=== PATIENT | female | born 1945 | race Caucasian/White ===

== ENCOUNTER → 2019-04-25 | Outpatient (CLI) | payer OTHER | LOC: HYPER 04-24 14:28 | DX: T81.89XA Other complications of procedures, not elsewhere classified, initial encounter (principal); E11.622 Type 2 diabetes mellitus with other skin ulcer; I70.242 Atherosclerosis of native arteries of left leg with ulceration of calf; L97.222 Non-pressure chronic ulcer of left calf with fat layer exposed; I70.243 Atherosclerosis of native arteries of left leg with ulceration of ankle; L97.321 Non-pressure chronic ulcer of left ankle limited to breakdown of skin; I87.332 Chronic venous hypertension (idiopathic) with ulcer and inflammation of left lower extremity; I87.2 Venous insufficiency (chronic) (peripheral); F33.9 Major depressive disorder, recurrent, unspecified; Z79.4 Long term (current) use of insulin; Y83.8 Other surgical procedures as the cause of abnormal reaction of the patient, or of later complication, without mention of misadventure at the time of the procedure; Y92.89 Other specified places as the place of occurrence of the external cause ==

== ENCOUNTER → 2019-05-01 | Outpatient (CLI) | payer OTHER | END | disposition home or self-care (01) | LOC: SJCVCIMAG 11:32 | DX: I73.9 Peripheral vascular disease, unspecified (principal); M79.605 Pain in left leg; L97.329 Non-pressure chronic ulcer of left ankle with unspecified severity; L97.929 Non-pressure chronic ulcer of unspecified part of left lower leg with unspecified severity ==

== ENCOUNTER → 2019-05-02 | Outpatient (CLI) | payer OTHER | LOC: HYPER 08:13 | DX: I70.242 Atherosclerosis of native arteries of left leg with ulceration of calf (principal); E11.622 Type 2 diabetes mellitus with other skin ulcer; L97.221 Non-pressure chronic ulcer of left calf limited to breakdown of skin; I70.243 Atherosclerosis of native arteries of left leg with ulceration of ankle; L97.321 Non-pressure chronic ulcer of left ankle limited to breakdown of skin; I70.248 Atherosclerosis of native arteries of left leg with ulceration of other part of lower leg; L97.822 Non-pressure chronic ulcer of other part of left lower leg with fat layer exposed; L03.116 Cellulitis of left lower limb; I87.332 Chronic venous hypertension (idiopathic) with ulcer and inflammation of left lower extremity; F33.9 Major depressive disorder, recurrent, unspecified; Z79.4 Long term (current) use of insulin; Z90.710 Acquired absence of both cervix and uterus ==

== ENCOUNTER → 2019-05-09 | Outpatient (CLI) | payer OTHER | LOC: HYPER 09:32 | DX: I70.242 Atherosclerosis of native arteries of left leg with ulceration of calf (principal); E11.622 Type 2 diabetes mellitus with other skin ulcer; I87.332 Chronic venous hypertension (idiopathic) with ulcer and inflammation of left lower extremity; L97.222 Non-pressure chronic ulcer of left calf with fat layer exposed; I70.243 Atherosclerosis of native arteries of left leg with ulceration of ankle; L97.321 Non-pressure chronic ulcer of left ankle limited to breakdown of skin; L57.0 Actinic keratosis; L30.9 Dermatitis, unspecified; L03.116 Cellulitis of left lower limb; E78.5 Hyperlipidemia, unspecified; F33.9 Major depressive disorder, recurrent, unspecified; Z79.4 Long term (current) use of insulin; Z90.710 Acquired absence of both cervix and uterus ==

== ENCOUNTER → 2019-05-16 | Outpatient (CLI) | payer OTHER | LOC: HYPER 09:52 | DX: I70.242 Atherosclerosis of native arteries of left leg with ulceration of calf (principal); E11.622 Type 2 diabetes mellitus with other skin ulcer; I87.332 Chronic venous hypertension (idiopathic) with ulcer and inflammation of left lower extremity; L97.222 Non-pressure chronic ulcer of left calf with fat layer exposed; I70.243 Atherosclerosis of native arteries of left leg with ulceration of ankle; L97.321 Non-pressure chronic ulcer of left ankle limited to breakdown of skin; L30.9 Dermatitis, unspecified; L03.116 Cellulitis of left lower limb; L57.0 Actinic keratosis; E78.5 Hyperlipidemia, unspecified; F33.9 Major depressive disorder, recurrent, unspecified; Z79.4 Long term (current) use of insulin; Z90.710 Acquired absence of both cervix and uterus; Z85.828 Personal history of other malignant neoplasm of skin; Z90.49 Acquired absence of other specified parts of digestive tract ==

== ENCOUNTER → 2019-05-23 | Outpatient (CLI) | payer OTHER | LOC: HYPER 09:57 | DX: E11.622 Type 2 diabetes mellitus with other skin ulcer (principal); I70.242 Atherosclerosis of native arteries of left leg with ulceration of calf; I87.332 Chronic venous hypertension (idiopathic) with ulcer and inflammation of left lower extremity; L97.822 Non-pressure chronic ulcer of other part of left lower leg with fat layer exposed; L97.221 Non-pressure chronic ulcer of left calf limited to breakdown of skin; L97.321 Non-pressure chronic ulcer of left ankle limited to breakdown of skin; L03.116 Cellulitis of left lower limb; L30.9 Dermatitis, unspecified; L57.0 Actinic keratosis; R60.0 Localized edema; E78.5 Hyperlipidemia, unspecified; F33.9 Major depressive disorder, recurrent, unspecified; Z79.4 Long term (current) use of insulin; Z90.49 Acquired absence of other specified parts of digestive tract; Z90.710 Acquired absence of both cervix and uterus ==

== ENCOUNTER → 2019-05-30 | Outpatient (CLI) | payer OTHER | LOC: HYPER 09:46 | DX: E11.622 Type 2 diabetes mellitus with other skin ulcer (principal); I70.242 Atherosclerosis of native arteries of left leg with ulceration of calf; L97.222 Non-pressure chronic ulcer of left calf with fat layer exposed; I70.248 Atherosclerosis of native arteries of left leg with ulceration of other part of lower leg; L97.822 Non-pressure chronic ulcer of other part of left lower leg with fat layer exposed; I70.243 Atherosclerosis of native arteries of left leg with ulceration of ankle; L97.321 Non-pressure chronic ulcer of left ankle limited to breakdown of skin; I87.2 Venous insufficiency (chronic) (peripheral); L30.9 Dermatitis, unspecified; L57.0 Actinic keratosis; E78.5 Hyperlipidemia, unspecified; I10 Essential (primary) hypertension; F33.9 Major depressive disorder, recurrent, unspecified; Z85.828 Personal history of other malignant neoplasm of skin; Z79.4 Long term (current) use of insulin; Z90.49 Acquired absence of other specified parts of digestive tract; Z90.710 Acquired absence of both cervix and uterus ==

== ENCOUNTER → 2019-06-06 | Outpatient (CLI) | payer OTHER | LOC: HYPER 09:41 | DX: I87.332 Chronic venous hypertension (idiopathic) with ulcer and inflammation of left lower extremity (principal); I70.248 Atherosclerosis of native arteries of left leg with ulceration of other part of lower leg; L97.822 Non-pressure chronic ulcer of other part of left lower leg with fat layer exposed; I70.242 Atherosclerosis of native arteries of left leg with ulceration of calf; L97.221 Non-pressure chronic ulcer of left calf limited to breakdown of skin; I70.243 Atherosclerosis of native arteries of left leg with ulceration of ankle; L97.321 Non-pressure chronic ulcer of left ankle limited to breakdown of skin; R60.0 Localized edema; L30.9 Dermatitis, unspecified; E78.5 Hyperlipidemia, unspecified; L57.0 Actinic keratosis; F33.9 Major depressive disorder, recurrent, unspecified; Z90.710 Acquired absence of both cervix and uterus; Z90.49 Acquired absence of other specified parts of digestive tract; Z79.4 Long term (current) use of insulin ==

== ENCOUNTER 2019-06-12 14:48 | Inpatient (IN) | payer OTHER ==
[~2019-06-12] VITALS: Ht 167.6 cm; Wt 94.7 kg
[2019-06-12 16:36] LABS: ABSOLUTE NEUTROPHILS 5.1 thou/uL (1.4-8.2); BASOPHILS 0.4 % (0.0-2.0); EOSINOPHILS 2.2 % (0.0-3.0); HEMATOCRIT 31.6 % (37.0-47.0); HEMOGLOBIN 10.3 gm/dL (12.0-15.0); LYMPHOCYTES 23.2 % (24.0-44.0); MCH 30.2 pg (26.0-34.0); MCHC 32.6 g/dL (28.0-37.0); MCV 92.6 fL (80.0-100.0); MONOCYTES 6.9 % (1.0-8.0); PLATELET COUNT 266 thou/uL (150-400); POLYS 67.3 % (36.0-66.0); RBC 3.42 mil/uL (4.20-5.00); RDW 14.7 % (10.5-14.5); WBC 7.6 thou/uL (4.0-11.0)
[2019-06-12 16:58] LABS: ALBUMIN 2.5 g/dL (3.4-5.0); CALCIUM 9.1 mg/dL (8.5-10.1); CREATININE 1.5 mg/dL (0.6-1.0); MAGNESIUM 2.1 mg/dL (1.8-2.4); TOTAL BILIRUBIN 0.3 mg/dL (<0.1-1.0); TOTAL PROTEIN 7.1 g/dL (6.4-8.2)
[2019-06-12 17:05] VITALS: BP 134/51
[2019-06-12 18:38] LABS: ALBUMIN 2.5 g/dL (3.4-5.0); TOTAL PROTEIN 7.1 g/dL (6.4-8.2)
[2019-06-12] MEDS ORDERED: ESTRACE0.5 MG PO (19:37)
[2019-06-12] MEDS ORDERED: ZOLOFT100 MG PO (19:38)
[2019-06-12] MEDS ORDERED: BUPROPION XL300 MG PO (19:39)
[2019-06-12] MEDS ORDERED: LASIX 40 MG TAB40 MG PO (19:40)
[2019-06-12] MEDS ORDERED: ULTRAM 50MG TAB50 MG PO (19:41)
[2019-06-12 20:23] VITALS: BP 126/45
[2019-06-13 00:12] VITALS: BP 107/39
[2019-06-13 02:11] LABS: GLYCOHEMOGLOBIN (HGB A1C) 7.2 % (4.8-5.6)
[2019-06-13 03:33] VITALS: BP 125/51
[2019-06-13 03:58] LABS: URINE BILIRUBIN NEGATIVE (Negative); URINE BLOOD NEGATIVE (Negative); URINE CLARITY CLEAR; URINE COLOR YELLOW; URINE GLUCOSE-RANDOM* NEGATIVE (Negative); URINE KETONES NEGATIVE (Negative); URINE LEUKOCYTES-REFLEX TRACE (Negative); URINE NITRITE-REFLEX NEGATIVE (Negative); URINE PROTEIN (DIPSTICK) NEGATIVE (Negative); URINE UROBILINOGEN 0.2 E.U./dl (0.2-1.0)
[2019-06-13 05:59] LABS: ABSOLUTE NEUTROPHILS 3.9 thou/uL (1.4-8.2); BASOPHILS 0.6 % (0.0-2.0); EOSINOPHILS 3.7 % (0.0-3.0); HEMATOCRIT 27.5 % (37.0-47.0); HEMOGLOBIN 9.2 gm/dL (12.0-15.0); MCH 31.1 pg (26.0-34.0); MCHC 33.4 g/dL (28.0-37.0); MCV 93.3 fL (80.0-100.0); MONOCYTES 7.6 % (1.0-8.0); PLATELET COUNT 233 thou/uL (150-400); POLYS 62.1 % (36.0-66.0); RBC 2.95 mil/uL (4.20-5.00); RDW 14.7 % (10.5-14.5); WBC 6.3 thou/uL (4.0-11.0)
[2019-06-13 06:26] LABS: CALCIUM 8.2 mg/dL (8.5-10.1); CREATININE 1.4 mg/dL (0.6-1.0)
[2019-06-13 07:45] VITALS: BP 113/47
--- NOTE | 2019-06-13 11:19 | 2DMMODE ---
[facility] [place] [address] 2 D/M-MODE ECHOCARDIOGRAM Name: DAISY ALFORD Room #: 463-P ADM IN M.R.#: [id number] Admission: 06/12/19 Attend Phys: Michael Solomon MD Discharge: Date of : 45 Report #: [id number] THIS REPORT FOR: cc: Estiven Natarajan Bradley J. DO Lundgren, Craig H. MD [facility] ~ APPROVED REPORT Study performed: 06/13/2019 09:45:11 EXAM: Comprehensive 2D, Doppler, and color-flow Echocardiogram Patient Location: Echo lab Room #: 463 Status: routine BSA: 2.05 HR: 81 bpm BP: 113/47 mmHg Rhythm: NSR Other Information Study Quality: Adequate Indications Diabetes Lower extremity swelling 2D Dimensions RVDd: 31.17 mm IVSd: 10.24 (7-11mm) LVOT Diam: 17.71 (18-24mm) LVDd: 46.93 mm PWd: 10.24 (7-11mm) Ascending Ao: 24.01 (22-36mm) LVDs: 30.39 (25-40mm) Aortic Root: 28.81 mm IVC: 22.00 mm Volumes Left Atrial Volume (Systole) Single Plane 4CH: 42.52 mL Single Plane 2CH: 37.05 mL LA ESV Index: 21.00 mL/m2 Aortic Valve AoV Peak Prince.: 1.54 m/s AO Peak Gr.: 12.89 mmHg LVOT Max P.59 mmHg LVOT Max V: 1.18 m/s KATHY Vmax: 1.88 cm2 [facility] [address] [place] [address] 2 D/M-MODE ECHOCARDIOGRAM Name: DAISY ALFORD Room #: 463-P [facility] IN [facility]#: [id number] Admission: 06/12/19 Attend Phys: Michael Solomon, Discharge: Date of : 45 Report #: [id number] Mitral Valve E/A Ratio: 0.9 MV Decel. Time: 244.76 ms MV E Max Prince.: 1.02 m/s MV A Prince.: 1.11 m/s MV PHT: 70.98 ms IVRT: 69.20 ms Pulmonary Valve PV Peak Prince.: 0.98 m/s PV Peak Gr.: 3.84 mmHg Pulmonary Vein P Vein S: 0.87 m/s P Vein A: 0.34 m/s P Vein D: 0.56 m/s P Vein A Dur.: 78.4 msec P Vein S/D Ratio: 1.55 Tricuspid Valve TR Peak Prince.: 2.51 m/s TR Peak Gr.: 25.29 mmHg PA Pressure: 35.00 mmHg Left Ventricle The left ventricle is normal size. There is normal LV segmental wall motion. There is normal left ventricular wall thickness. The left ventricular systolic function is normal. The left ventricular ejection fraction is within the normal range. LVEF is 55-60%. Mild diastolic dysfunction is present (impaired relaxation pattern). Right Ventricle The right ventricle is normal size. The right ventricular systolic function is normal. Atria The left atrium size is normal. The right atrium size is normal. Aortic Valve The aortic valve is normal in structure. No aortic regurgitation is present. There is no aortic valvular stenosis. Mitral Valve The mitral valve is normal in structure. Trace mitral regurgitation. No evidence of mitral valve stenosis. [facility] [address] [place] [address] 2 D/M-MODE ECHOCARDIOGRAM Name: DAISY ALFORD Room #: 463-P [facility] IN M.R.#: [id number] Admission: 06/12/19 Attend Phys: Michael Solomon, Discharge: Date of : 45 Report #: [id number] Tricuspid Valve The tricuspid valve is normal in structure. There is trace tricuspid regurgitation. Estimated PAP 35 mmHg. There is mild pulmonary hypertension. Pulmonic Valve The pulmonary valve is normal in structure. There is no pulmonic valvular regurgitation. Great Vessels The aortic root is normal in size. IVC is dilated and collapses >50% with inspiration. Pericardium There is no pericardial effusion. <Conclusion> The left ventricular systolic function is normal. There is normal LV segmental wall motion. LVEF is 55-60%. Mild diastolic dysfunction. The aortic valve is normal in structure. No aortic regurgitation, no stenosis The mitral valve is normal in structure. Trace mitral regurgitation. There is trace tricuspid regurgitation. Estimated pulmonary artery pressure of 35 mmHg. There is no pericardial effusion. <ELECTRONICALLY SIGNED> By: Keegan Lynch MD, FACC 06/13/19 1118 [id number] [id number] Keegan Lynch MD, FACC /INF
[2019-06-13] MEDS ORDERED: HUMALOG100 UNIT/1 SUBQ (14:58)
[2019-06-13] MEDS ORDERED: LANTUS SUBQ (14:59)
[2019-06-13 15:15] VITALS: BP 120/47
[2019-06-13 20:01] VITALS: BP 114/59
[2019-06-14 04:56] LABS: PROT/CREAT RATIO 0.3; URINE CREATININE-RANDOM* 126.7 mg/dL; URINE PROTEIN-RANDOM* 39.7 mg/dL (<11.9)
[2019-06-14 08:36] VITALS: BP 131/50
[2019-06-14 15:41] VITALS: BP 135/58
[2019-06-14 20:01] VITALS: BP 132/46
[2019-06-15 08:24] VITALS: BP 138/59
[2019-06-15 13:06] VITALS: BP 163/61
[2019-06-15] MEDS ORDERED: AUGMENTIN 875-1 EACH PO (13:27)
[2019-06-15 14:20] VITALS: BP 163/61
--- NOTE | 2019-06-19 08:12 | HC ---
[facility] [place] [address] CONSULTATION Name: DAISY ALFORD Room #: 463-P [facility] IN M.R.#: [id number] Admission: 06/12/19 Attend Phys: Michael Solomon MD Discharge: 06/15/19 Date of : 45 Report #: [id number] THIS REPORT FOR: cc: Estiven Natarajan,Facundo Sterling MD ~ CC: Estiven Soto DATE OF SERVICE: 06/13/2019 HISTORY OF PRESENT ILLNESS: The patient is a 73-year-old female patient with a history of venous insufficiency. 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 She, however, on her right leg developed significant cellulitis and blistering and high fever and is admitted to the hospital for further evaluation and treatment. The patient has significant pain at this time. PAST MEDICAL HISTORY: Positive for diabetes, previous hysterectomy, venous insufficiency. SOCIAL HISTORY: Negative for alcohol or tobacco use. She is , accompanied by her . MEDICATIONS: Include bupropion, estradiol, furosemide, insulin, sertraline, and tramadol. ALLERGIES: ADHESIVE TAPE AND METFORMIN. REVIEW OF SYSTEMS: CONSTITUTIONAL: The patient does complain of fever and chills. Denies weight loss. NEUROLOGICAL: The patient denies focal weakness, numbness or tingling. EYES: The patient denies visual changes, redness, or drainage. ENT: The patient denies earache, nasal drainage or sore throat. CARDIOVASCULAR: The patient denies chest pain, palpitations or diaphoresis. PULMONARY: The patient denies cough or shortness of breath. GASTROINTESTINAL: The patient denies nausea, vomiting, diarrhea or abdominal pain. ORTHOPEDIC: The patient complains of pain, swelling, blistering in the right leg, ulcers on the left leg. Other systems in a 14-point review of systems are negative. PHYSICAL EXAMINATION: [facility] [address] [place] [address] CONSULTATION Name: DAISY ALFORD Room #: 463-P [facility] IN M.R.#: [id number] Admission: 06/12/19 Attend Phys: Michael Solomon MD Discharge: 06/15/19 Date of : 45 Report #: [id number] VITAL SIGNS: Include temperature 36.3, pulse 81, respiratory rate 18, and blood pressure 113/47. GENERAL: A well-developed female patient who appears to be in minimal distress. HEENT: Head is normocephalic. Nose and throat clear. NECK: Supple. LUNGS: Clear to auscultation. HEART: Regular rhythm. ABDOMEN: Soft. Bowel sounds present. EXTREMITIES: Lower extremities demonstrate palpable distal pulses. She has cellulitis with bulla formation on the right pretibial region with significant erythema involving the foot and lower leg. The left side demonstrates circular deep ulcerations consistent with skin necrosis from venous ablation procedure. It is not overtly infected. NEUROLOGIC: The patient is alert, oriented and appropriate. LABORATORY DATA: Sodium 141, potassium 4.0, chloride 107, CO2 24, BUN 26, creatinine 1.4, glucose 188. White blood cell count 6.3 with a hemoglobin of 9.2. CLINICAL IMPRESSION: 1. Cellulitis with multiple bullae involving the right lower extremity. 2. Venous ulcerations and surgical wounds to the left lower extremity. RECOMMENDATIONS: At this point in time, we will recommend pulse lavage to the left side and some abrasive cleansing to the right intravenous antibiotic therapy, empirically pending cultures. We will need aggressive nutritional support to maximize wound healing and maintain glycemic control. I do appreciate being asked to see her in consultation. <ELECTRONICALLY SIGNED> By: Facundo Alfred MD 06/19/19 0812 [id number] Facundo Alfred MD /nt
== END 2019-06-15 15:02 | disposition home or self-care (01) | DRG 602 ==
LOC: HYPER 14:48 → 4W 15:21 → PRE 15:21 → 4W 15:30 → ENTRNSPT 06-15 14:34 → EDTRNSPTSTS 06-15 14:36 → 4W 06-15 15:02
PROVIDERS: Internal Medicine Geriatric Medicine; Nurse Practitioner; ADMIT Internal Medicine
DX: L03.115 Cellulitis of right lower limb (principal); E43 Unspecified severe protein-calorie malnutrition; L97.929 Non-pressure chronic ulcer of unspecified part of left lower leg with unspecified severity; F32.9 Major depressive disorder, single episode, unspecified; S81.802A Unspecified open wound, left lower leg, initial encounter; K59.00 Constipation, unspecified; E53.8 Deficiency of other specified B group vitamins; G47.00 Insomnia, unspecified; I87.2 Venous insufficiency (chronic) (peripheral); N18.9 Chronic kidney disease, unspecified; E11.22 Type 2 diabetes mellitus with diabetic chronic kidney disease; Z88.8 Allergy status to other drugs, medicaments and biological substances; Z87.442 Personal history of urinary calculi; Z90.710 Acquired absence of both cervix and uterus; Z79.4 Long term (current) use of insulin; X58.XXXA Exposure to other specified factors, initial encounter; Y93.89 Activity, other specified; Y92.89 Other specified places as the place of occurrence of the external cause; Y99.8 Other external cause status
CPT/HCPCS: 10047

== ENCOUNTER → 2019-06-22 | Outpatient (CLI) | payer OTHER ==
[~2019-06-22] MED LIST: AUGMENTIN 875-1 EACH PO; BUPROPION XL300 MG PO; ESTRACE0.5 MG PO; HUMALOG100 UNIT/1 SUBQ; LANTUS SUBQ; LASIX 40 MG TAB40 MG PO; ULTRAM 50MG TAB50 MG PO; ZOLOFT100 MG PO
== END ==
LOC: HYPER 09:31
DX: E11.622 Type 2 diabetes mellitus with other skin ulcer (principal); I87.332 Chronic venous hypertension (idiopathic) with ulcer and inflammation of left lower extremity; L97.822 Non-pressure chronic ulcer of other part of left lower leg with fat layer exposed; I70.242 Atherosclerosis of native arteries of left leg with ulceration of calf; L97.222 Non-pressure chronic ulcer of left calf with fat layer exposed; L97.321 Non-pressure chronic ulcer of left ankle limited to breakdown of skin; L84 Corns and callosities; L03.115 Cellulitis of right lower limb; L30.9 Dermatitis, unspecified; L57.0 Actinic keratosis; R60.0 Localized edema; F33.9 Major depressive disorder, recurrent, unspecified; Z79.4 Long term (current) use of insulin; Z90.49 Acquired absence of other specified parts of digestive tract; Z90.710 Acquired absence of both cervix and uterus; E78.5 Hyperlipidemia, unspecified

== ENCOUNTER → 2019-06-29 | Outpatient (CLI) | payer OTHER | LOC: HYPER 14:19 | DX: I87.332 Chronic venous hypertension (idiopathic) with ulcer and inflammation of left lower extremity (principal); E11.622 Type 2 diabetes mellitus with other skin ulcer; I70.242 Atherosclerosis of native arteries of left leg with ulceration of calf; L97.222 Non-pressure chronic ulcer of left calf with fat layer exposed; I70.248 Atherosclerosis of native arteries of left leg with ulceration of other part of lower leg; L97.822 Non-pressure chronic ulcer of other part of left lower leg with fat layer exposed; I70.243 Atherosclerosis of native arteries of left leg with ulceration of ankle; L97.321 Non-pressure chronic ulcer of left ankle limited to breakdown of skin; L03.115 Cellulitis of right lower limb; L30.9 Dermatitis, unspecified; E11.628 Type 2 diabetes mellitus with other skin complications; L57.0 Actinic keratosis; F33.9 Major depressive disorder, recurrent, unspecified; Z79.4 Long term (current) use of insulin; Z90.49 Acquired absence of other specified parts of digestive tract; Z90.710 Acquired absence of both cervix and uterus ==

== ENCOUNTER → 2019-07-05 | Outpatient (CLI) | payer OTHER ==
[~2019-07-05] VITALS: Ht 198.1 cm; Wt 95.3 kg
[~2019-07-05] MED LIST changes: +NEURONTIN300 MG PO; +NORCO 10-325 T1 EACH PO
[2019-07-05 10:33] LABS: HEMATOCRIT 36.9 % (37.0-47.0); HEMOGLOBIN 12.2 gm/dL (12.0-15.0); MCH 30.3 pg (26.0-34.0); MCHC 33.1 g/dL (28.0-37.0); MCV 91.8 fL (80.0-100.0); RBC 4.02 mil/uL (4.20-5.00); RDW 15.1 % (10.5-14.5); WBC 5.6 thou/uL (4.0-11.0)
[2019-07-05 10:40] VITALS: BP 161/86
[2019-07-05 10:47] LABS: CALCIUM 9.6 mg/dL (8.5-10.1); CREATININE 1.5 mg/dL (0.6-1.0); POTASSIUM 4.8 mmol/L (3.5-5.1)
--- NOTE | 2019-07-05 13:34 | NUR ---
ATTEMPTED TO FLUSH L LATERAL AC IV FLUIDS NOT RUNNING. PT COMPLAINS OF PAIN TO IV SITE WHEN FLUSHED. NO SWELLING OR REDNESS NOTED. IV D/C'D. 22G RESTARTED TO LAC AND FLUIDS RESTARTED.
[2019-07-05 15:42] VITALS: BP 155/74
== END ==
LOC: CATH 09:36
PROVIDERS: Nuclear Medicine Nuclear Cardiology
DX: I87.1 Compression of vein (principal); I87.303 Chronic venous hypertension (idiopathic) without complications of bilateral lower extremity

== ENCOUNTER → 2019-07-06 | Outpatient (CLI) | payer OTHER | LOC: SJCVCIMAG 07:36 | DX: M71.21 Synovial cyst of popliteal space [Baker], right knee (principal); M79.605 Pain in left leg; R22.42 Localized swelling, mass and lump, left lower limb ==

== ENCOUNTER → 2019-07-06 | Outpatient (CLI) | payer OTHER | LOC: HYPER 09:00 | DX: E11.622 Type 2 diabetes mellitus with other skin ulcer (principal); I87.332 Chronic venous hypertension (idiopathic) with ulcer and inflammation of left lower extremity; L97.822 Non-pressure chronic ulcer of other part of left lower leg with fat layer exposed; I70.242 Atherosclerosis of native arteries of left leg with ulceration of calf; L97.222 Non-pressure chronic ulcer of left calf with fat layer exposed; L03.115 Cellulitis of right lower limb; L84 Corns and callosities; L30.9 Dermatitis, unspecified; L57.0 Actinic keratosis; I89.0 Lymphedema, not elsewhere classified; R60.0 Localized edema; E78.5 Hyperlipidemia, unspecified; F33.9 Major depressive disorder, recurrent, unspecified; Z79.4 Long term (current) use of insulin; Z90.710 Acquired absence of both cervix and uterus; Z90.49 Acquired absence of other specified parts of digestive tract ==

== ENCOUNTER → 2019-07-13 | Outpatient (CLI) | payer OTHER | LOC: HYPER 09:00 | DX: E11.622 Type 2 diabetes mellitus with other skin ulcer (principal); I87.332 Chronic venous hypertension (idiopathic) with ulcer and inflammation of left lower extremity; L97.822 Non-pressure chronic ulcer of other part of left lower leg with fat layer exposed; I70.242 Atherosclerosis of native arteries of left leg with ulceration of calf; L97.222 Non-pressure chronic ulcer of left calf with fat layer exposed; L97.812 Non-pressure chronic ulcer of other part of right lower leg with fat layer exposed; L03.115 Cellulitis of right lower limb; L84 Corns and callosities; L30.9 Dermatitis, unspecified; L57.0 Actinic keratosis; E78.5 Hyperlipidemia, unspecified; R60.0 Localized edema; I89.0 Lymphedema, not elsewhere classified; F33.9 Major depressive disorder, recurrent, unspecified; Z79.4 Long term (current) use of insulin; Z90.49 Acquired absence of other specified parts of digestive tract; Z90.710 Acquired absence of both cervix and uterus ==

== ENCOUNTER → 2019-07-20 | Outpatient (CLI) | payer OTHER | LOC: HYPER 14:07 | DX: E11.622 Type 2 diabetes mellitus with other skin ulcer (principal); I87.332 Chronic venous hypertension (idiopathic) with ulcer and inflammation of left lower extremity; L97.822 Non-pressure chronic ulcer of other part of left lower leg with fat layer exposed; I70.242 Atherosclerosis of native arteries of left leg with ulceration of calf; L97.222 Non-pressure chronic ulcer of left calf with fat layer exposed; L84 Corns and callosities; L03.115 Cellulitis of right lower limb; L30.9 Dermatitis, unspecified; L57.0 Actinic keratosis; R60.0 Localized edema; E78.5 Hyperlipidemia, unspecified; I89.0 Lymphedema, not elsewhere classified; F33.9 Major depressive disorder, recurrent, unspecified; Z79.4 Long term (current) use of insulin; Z90.49 Acquired absence of other specified parts of digestive tract; Z90.710 Acquired absence of both cervix and uterus ==

== ENCOUNTER → 2019-07-27 | Outpatient (CLI) | payer OTHER | LOC: HYPER 08:09 | DX: E11.622 Type 2 diabetes mellitus with other skin ulcer (principal); I87.332 Chronic venous hypertension (idiopathic) with ulcer and inflammation of left lower extremity; L97.822 Non-pressure chronic ulcer of other part of left lower leg with fat layer exposed; I70.242 Atherosclerosis of native arteries of left leg with ulceration of calf; L97.222 Non-pressure chronic ulcer of left calf with fat layer exposed; L84 Corns and callosities; L30.9 Dermatitis, unspecified; L57.0 Actinic keratosis; I89.0 Lymphedema, not elsewhere classified; E78.5 Hyperlipidemia, unspecified; R60.0 Localized edema; F33.9 Major depressive disorder, recurrent, unspecified; Z79.4 Long term (current) use of insulin; Z90.49 Acquired absence of other specified parts of digestive tract; Z90.710 Acquired absence of both cervix and uterus ==

== ENCOUNTER → 2019-08-03 | Outpatient (CLI) | payer OTHER | LOC: HYPER 09:25 | DX: E11.622 Type 2 diabetes mellitus with other skin ulcer (principal); I87.332 Chronic venous hypertension (idiopathic) with ulcer and inflammation of left lower extremity; L97.822 Non-pressure chronic ulcer of other part of left lower leg with fat layer exposed; I70.242 Atherosclerosis of native arteries of left leg with ulceration of calf; L97.222 Non-pressure chronic ulcer of left calf with fat layer exposed; L84 Corns and callosities; L57.0 Actinic keratosis; L30.9 Dermatitis, unspecified; I89.0 Lymphedema, not elsewhere classified; R60.0 Localized edema; E78.5 Hyperlipidemia, unspecified; F33.9 Major depressive disorder, recurrent, unspecified; Z90.49 Acquired absence of other specified parts of digestive tract; Z90.710 Acquired absence of both cervix and uterus; Z79.4 Long term (current) use of insulin ==

== ENCOUNTER → 2019-08-10 | Outpatient (CLI) | payer OTHER | LOC: HYPER 09:13 | DX: E11.622 Type 2 diabetes mellitus with other skin ulcer (principal); I87.332 Chronic venous hypertension (idiopathic) with ulcer and inflammation of left lower extremity; L97.822 Non-pressure chronic ulcer of other part of left lower leg with fat layer exposed; I70.242 Atherosclerosis of native arteries of left leg with ulceration of calf; L97.221 Non-pressure chronic ulcer of left calf limited to breakdown of skin; I89.0 Lymphedema, not elsewhere classified; R60.0 Localized edema; L30.9 Dermatitis, unspecified; L57.0 Actinic keratosis; E78.5 Hyperlipidemia, unspecified; F33.9 Major depressive disorder, recurrent, unspecified; Z90.49 Acquired absence of other specified parts of digestive tract; Z79.4 Long term (current) use of insulin; Z90.710 Acquired absence of both cervix and uterus ==

== ENCOUNTER → 2019-08-17 | Outpatient (CLI) | payer OTHER | LOC: HYPER 08:33 | DX: E11.622 Type 2 diabetes mellitus with other skin ulcer (principal); I87.332 Chronic venous hypertension (idiopathic) with ulcer and inflammation of left lower extremity; L97.822 Non-pressure chronic ulcer of other part of left lower leg with fat layer exposed; I70.242 Atherosclerosis of native arteries of left leg with ulceration of calf; L97.222 Non-pressure chronic ulcer of left calf with fat layer exposed; L57.0 Actinic keratosis; L84 Corns and callosities; L30.9 Dermatitis, unspecified; E78.5 Hyperlipidemia, unspecified; I89.0 Lymphedema, not elsewhere classified; R60.0 Localized edema; F33.9 Major depressive disorder, recurrent, unspecified; Z79.4 Long term (current) use of insulin; Z90.49 Acquired absence of other specified parts of digestive tract; Z90.710 Acquired absence of both cervix and uterus ==

== ENCOUNTER → 2019-08-31 | Outpatient (CLI) | payer OTHER | LOC: HYPER 08:52 | DX: E11.622 Type 2 diabetes mellitus with other skin ulcer (principal); I87.332 Chronic venous hypertension (idiopathic) with ulcer and inflammation of left lower extremity; L97.822 Non-pressure chronic ulcer of other part of left lower leg with fat layer exposed; I70.242 Atherosclerosis of native arteries of left leg with ulceration of calf; L97.221 Non-pressure chronic ulcer of left calf limited to breakdown of skin; L84 Corns and callosities; L30.9 Dermatitis, unspecified; L57.0 Actinic keratosis; I87.2 Venous insufficiency (chronic) (peripheral); I89.0 Lymphedema, not elsewhere classified; R60.0 Localized edema; E78.5 Hyperlipidemia, unspecified; F33.9 Major depressive disorder, recurrent, unspecified; Z90.710 Acquired absence of both cervix and uterus; Z90.49 Acquired absence of other specified parts of digestive tract; Z79.4 Long term (current) use of insulin ==

== ENCOUNTER → 2019-09-07 | Outpatient (CLI) | payer OTHER | LOC: HYPER 08:57 | DX: E11.622 Type 2 diabetes mellitus with other skin ulcer (principal); I87.332 Chronic venous hypertension (idiopathic) with ulcer and inflammation of left lower extremity; L97.822 Non-pressure chronic ulcer of other part of left lower leg with fat layer exposed; I70.242 Atherosclerosis of native arteries of left leg with ulceration of calf; L97.221 Non-pressure chronic ulcer of left calf limited to breakdown of skin; L84 Corns and callosities; L30.9 Dermatitis, unspecified; L57.0 Actinic keratosis; E78.5 Hyperlipidemia, unspecified; I89.0 Lymphedema, not elsewhere classified; R60.0 Localized edema; F33.9 Major depressive disorder, recurrent, unspecified; Z90.49 Acquired absence of other specified parts of digestive tract; Z79.4 Long term (current) use of insulin; Z90.710 Acquired absence of both cervix and uterus ==

== ENCOUNTER → 2019-09-14 | Outpatient (CLI) | payer OTHER ==
[~2019-09-14] MED LIST changes: +CEFDINIR300 MG PO; +LASIX 40 MG TAB40 M2 PO; +LEVAQUIN 500 M500 M3 PO; +METRONIDAZOLE500 M4 PO
== END ==
LOC: HYPER 07:37
PROVIDERS: ATTEND Emergency Medicine
DX: E11.622 Type 2 diabetes mellitus with other skin ulcer (principal); I87.332 Chronic venous hypertension (idiopathic) with ulcer and inflammation of left lower extremity; L97.822 Non-pressure chronic ulcer of other part of left lower leg with fat layer exposed; I70.242 Atherosclerosis of native arteries of left leg with ulceration of calf; L97.222 Non-pressure chronic ulcer of left calf with fat layer exposed; L84 Corns and callosities; I89.0 Lymphedema, not elsewhere classified; R60.0 Localized edema; L30.9 Dermatitis, unspecified; L57.0 Actinic keratosis; E78.5 Hyperlipidemia, unspecified; F33.9 Major depressive disorder, recurrent, unspecified; Z79.4 Long term (current) use of insulin; Z90.49 Acquired absence of other specified parts of digestive tract; Z90.710 Acquired absence of both cervix and uterus

== ENCOUNTER 2019-09-16 10:24 | Inpatient (IN) | payer OTHER ==
[~2019-09-16] VITALS: Ht 167.6 cm; Wt 97.5 kg
[~2019-09-16 10:24] MED LIST changes: -CEFDINIR300 MG PO; -LASIX 40 MG TAB40 M2 PO; -LEVAQUIN 500 M500 M3 PO; -METRONIDAZOLE500 M4 PO
[2019-09-16 10:25] VITALS: BP 114/41
--- NOTE | 2019-09-16 10:59 | NUR ---
PT HAS DRESSING ON LLE PT STATES HER ULCERATIONS ON THAT EXTREMITY ARE BEING TREATED BY DR RODRIGUEZ AND ARE CURRENTLY PACKED WITH SILVER ALGINATE (NOT TO BE REMOVED FOR ANOTHER WEEK) PT STATES SHE DOES DAILY DRESSING CHANGES WITH NON-STICK GAUZE WRAPPED IN KERLIX AND SECURED WITH TAPE. DID NOT VISUALIZE WOUNDS, LEFT DRESSING IN PLACE.
[2019-09-16 11:03] LABS: ABSOLUTE NEUTROPHILS 15.9 thou/uL (1.4-8.2); BASOPHILS 0.1 % (0.0-2.0); HEMATOCRIT 35.1 % (37.0-47.0); HEMOGLOBIN 11.8 gm/dL (12.0-15.0); LYMPHOCYTES 2.8 % (24.0-44.0); MCH 30.5 pg (26.0-34.0); MCHC 33.8 g/dL (28.0-37.0); MCV 90.4 fL (80.0-100.0); MONOCYTES 2.2 % (1.0-8.0); PLATELET COUNT 285 thou/uL (150-400); POLYS 94.9 % (36.0-66.0); RBC 3.88 mil/uL (4.20-5.00); WBC 16.7 thou/uL (4.0-11.0)
[2019-09-16 11:11] LABS: CALCIUM 8.3 mg/dL (8.5-10.1); CREATININE 2.5 mg/dL (0.6-1.0); POTASSIUM 5.1 mmol/L (3.5-5.1)
[2019-09-16 11:14] LABS: ALBUMIN 2.7 g/dL (3.4-5.0); TOTAL BILIRUBIN 0.5 mg/dL (0.2-1.0); TOTAL PROTEIN 6.6 g/dL (6.4-8.2)
[2019-09-16 12:33] VITALS: BP 133/42
[2019-09-16 13:20] LABS: URINE BILIRUBIN NEGATIVE (Negative); URINE BLOOD TRACE (Negative); URINE CLARITY CLEAR; URINE COLOR ORANGE; URINE GLUCOSE-RANDOM* 1+ (Negative); URINE KETONES TRACE (Negative); URINE PROTEIN (DIPSTICK) 2+ (Negative); URINE SPECIFIC GRAVITY 1.015 (1.005-1.035)
[2019-09-16 13:25] LABS: URINE LEUKOCYTES-REFLEX 3+ (Negative); URINE NITRITE-REFLEX POSITIVE (Negative)
[2019-09-16 13:38] LABS: SQUAMOUS 0-3 Few /LPF (0-3)
[2019-09-16 13:39] LABS: CRYSTALS None Seen /LPF (None Seen); URINE RBC 0-2 Rare /HPF (0-2); URINE WBC-REFLEX >25 Many /HPF (0-5)
[2019-09-16 13:40] LABS: CASTS None Seen /LPF (None Seen)
[2019-09-16 14:44] VITALS: BP 132/42; BP 134/32
[2019-09-16 16:20] VITALS: BP 136/85
--- NOTE | 2019-09-16 19:39 | NUR ---
Admitted from ER due to cellulitis at 1500; transferred to bed safely. A+Ox4. On room air. Vital signs stable. On telemetry, strips attached to chart- SR- no complaints of chest pain, crushing sensation and heaviness. On carb controlled diet- tolerating well; no nausea, no vomiting and no abdominal pain noted. On blood sugar monitoring- taken and recorded accordingly; with sliding scale insulin ordered- given as preascribed. With SL at R AC- resumed ordered NS at 150cc/hr. Continent of bowel and bladder- assisted going to the toilet with gait belt, walker and standby assist. Admission education, history and assessment done; admission forms signed. With bilateral LE cellulitis- photo taken; dressing changed. Consult to Dr Soto called in by US; L leg with packing in place- pt refused to have it removed- body painter nurse informed. Pt's updated re: pt's status. Complained of pain, due PRN pain meds given as prescribed with partial pain relief. Assisted in ADLs. Falls bundle in place. To continue monitoring patient. With Lactic acid of 3.0 at 1732 from 2.7 at 1436- Dr Sullivan informed, a/w orders. Response received at 1920 for NS 500ml bolus- body painter nurse informed to put in orders- shown physician's response.
[2019-09-16 19:52] VITALS: BP 126/41
[2019-09-17 00:12] VITALS: BP 100/77
--- NOTE | 2019-09-17 03:55 | NUR ---
ASSUMED CARE OF PT AT 1900HRS. PT AOX4 AND LETS NEEDS BE KNOWN. FALL PRECAUTION IN PLACE. PT REPORTED SOME PAIN AND WAS TREATED WITH PRN PAIN MEDS. PT RUNNING ST ON TELE. PT'S LACTATE IN NOW WNL. PT PRODUCED DARK, ORANGE URINE THIS SHIFT. PT HAD A TEMP OF 100.5 AND IT RESOLVED BY NIDNIGHT. PT WAS ABLE TO GET COMFORTABLE AND SLEEP PART OF THE SHIFT. NO S/S OF ACUTE DISTRESS. WILL CONTINUE TO MONITOR.
[2019-09-17 04:46] VITALS: BP 101/80
[2019-09-17 06:16] LABS: HEMATOCRIT 31.9 % (37.0-47.0); HEMOGLOBIN 10.7 gm/dL (12.0-15.0); MCH 30.4 pg (26.0-34.0); MCHC 33.4 g/dL (28.0-37.0); MCV 91.1 fL (80.0-100.0); RBC 3.51 mil/uL (4.20-5.00); RDW 14.3 % (10.5-14.5); WBC 14.7 thou/uL (4.0-11.0)
--- NOTE | 2019-09-17 08:07 | HC ---
[facility] [place] [address] CONSULTATION Name: TARA ALFORD Room #: 456-P ADM IN M.R.#: [id number] Admission: 09/16/19 Attend Phys: Corazon Sullivan MD Discharge: Date of : 45 Report #: [id number] THIS REPORT FOR: cc: Estiven Natarajan,Grant Mendez MD ~ CC: Corazon Natarajan DATE OF SERVICE: 09/17/2019 REASON FOR CONSULTATION: Cellulitis of bilateral legs with venous stasis ulceration of left leg and worsening cellulitis. HISTORY OF PRESENT ILLNESS: The patient is a 74-year-old woman, patient of Dr. Gary Soto, well known to Dr. Soto and seen by him in [facility] on , 3 days ago. At that time, Dr. Soto applied a biologic dressing to venous stasis ulcerations of the left medial lower leg. I received a phone call from the patient's yesterday presentation designer stating that his , Tara's legs were in a worse of her condition with more swelling, more redness, more pain and she was having constitutional symptoms of malaise and low-grade fever. I directed the patient to present to the Emergency Room at [facility] and she has been admitted to the hospital under Dr. Sullivan and is currently on intravenous vancomycin. The patient states that she just was not feeling well at home. She was weak. Her legs were more red and tender. She had a low-grade temperature. At home, she does use compression wraps on her legs. Wound care is consulted due to her worsening cellulitis of the legs with ulceration of the left leg. PAST MEDICAL HISTORY: Diabetes mellitus type 2 with peripheral neuropathy, hemoglobin A1c recent 6.9; chronic venous stasis of bilateral lower extremities; venous stasis ulceration of the legs; obesity; chronic kidney disease, stage2, creatinine 1.5. PAST SURGICAL HISTORY: Laparoscopic cholecystectomy. ALLERGIES: METFORMIN. REVIEW OF SYSTEMS: The patient has weakness and malaise, low-grade fever. LABORATORY DATA: White blood count 16.7, hemoglobin 11.8, hematocrit 35.1, creatinine 2.5. PHYSICAL EXAMINATION: GENERAL: Shows a well-appearing obese, elderly woman with some malaise. HEENT: Mucous membranes are moist. [address] [address] CONSULTATION Name: TARA ALFORD Room #: 456-P [facility] IN ..#: [id number] Admission: 09/16/19 Attend Phys: Corazon Sullivan MD Discharge: Date of : 45 Report #: [id number] NECK: Supple. She is alert, conversant good historian. LUNGS: Respirations unlabored. ABDOMEN: Soft. EXTREMITIES: Exam shows intense redness and cellulitis of the right leg from the mid leg to the foot. There are no ulcerations of the right leg. Examination of the left leg also shows intense red cellulitis with two small chronic-appearing venous stasis ulcerations of the medial left lower leg. There appears to be a biologic product applied to the wounds by Dr. Soto on . The patient says this is supposed to stay on. There is some exudate from the wound. IMPRESSION: 1. Obesity. 2. Diabetes mellitus type 2 with peripheral neuropathy. 3. History of chronic venous stasis of lower extremities. 4. Worsening cellulitis of right and left leg. 5. Venous stasis ulceration of left leg. PLAN: Wound cultures ordered for open exudative wounds of the left leg. The patient will receive intravenous vancomycin pending culture results. Xeroform to both legs including the open areas, Kerlix and Talon wrap. Wound care team will follow as cellulitis is treated with vancomycin. <ELECTRONICALLY SIGNED> By: Grant Jones MD 09/17/19 0807 [id number] Grant Jones MD /nt
[2019-09-17 08:46] LABS: CALCIUM 8.3 mg/dL (8.5-10.1); CREATININE 2.1 mg/dL (0.6-1.0)
[2019-09-17 08:56] LABS: POTASSIUM 3.8 mmol/L (3.5-5.1)
--- NOTE | 2019-09-17 18:33 | NUR ---
AAOX4. CALM, COOPERATIVE. ANTIBIOTICS STARTED. RIGHT LEG DRESSED ORDERED. FALL PRECAUTIONS IN PLACE. NSR PER TELE. MEDICATED FOR PAIN ALLOWED.
[2019-09-17 20:24] VITALS: BP 122/53
[2019-09-17 21:27] VITALS: BP 122/53
[2019-09-18 07:30] VITALS: BP 124/62
--- NOTE | 2019-09-18 07:36 | NUR ---
PT AOX4. PT REPORTS PAIN IN BLE. PT RECEIVING PRN IV FENTANYL Q4HR WITH PRN PO TRAMADOL DAILY AVAILABLE. PT REPORTS TRAMADOL INEFFECTIVE. HOT WORT SETTLER PROVIDER NOTIFIED, EMAR UPDATED WITH PRN PO NORCO Q4HR AVAILABLE. PT AMBULATES IN ROOM AND TO BATHROOM WITH STANDBY ASSIST. PT RLE REMAINS DRESSED AND WRAPPED IN DAVID WRAP. LLE NOTED WITH TRANSPARENT ADHESIVE DRESSING. PT REPORTS SPEAKING WITH DR. RODRIGUEZ IN REGARDS TO WOUND CARE TO LLE. HOT WORT SETTLER PROVIDER NOTIFIED, WOUND CARE ORDERS RECEIVED FOR LLE TO APPLY XEROFORM, ABD, AND KERLIX. PT TOLERATING PO INTAKE OF FLUIDS AND CARB CONTROLLED DIET. ENCOURAGED PT TO NOTIFY STAFF FOR ALL NEEDS. CALL LIGHT WITHIN REACH, BED IN LOWEST POSITION. WILL CONTINUE TO MONITOR.
[2019-09-18 15:47] LABS: CALCIUM 8.4 mg/dL (8.5-10.1); CREATININE 1.9 mg/dL (0.6-1.0); POTASSIUM 3.9 mmol/L (3.5-5.1)
[2019-09-18 16:40] VITALS: BP 155/63
[2019-09-18] MEDS ORDERED: NEURONTIN300 MG PO (17:22)
--- NOTE | 2019-09-18 18:56 | NUR ---
ASSUMED CARE AT CHANGE OF SHIFT. ALERTX4, ANXIOUS REGARDING WOUND HEALING AND EDEMA IN LE. WOUND CARE TREE TOPPER AND DR JARVIS ROUNDING AND SPENT TIME REVIEWING LE CARE NEEDS AND HEALING CARE PLAN. DENIES SOB, VS WNL. UP AB REMEDIOS IN ROOM. PT TO BE EVALUATED BY LIMPHADEMA SPECIALIST FROM OCCUPATIONAL THERAPY. WOUND CARE COMPLETED BY WOUND TREE TOPPER SEE ORDERS FOR DAILY DRESSINGS. PERSONAL ITEMS IN REACH CALLS FOR ASSISTANCE.
[2019-09-18 19:45] VITALS: BP 129/47
[2019-09-19 04:15] VITALS: BP 110/49
--- NOTE | 2019-09-19 04:22 | NUR ---
Assumed pt care at 1900. Pt is A/OX4, VSS. Up ad elena w/o problems. Denies pain on assessment. Compa lower extremities wrapped in acewraps,edema noted on BLE,feet elevated while in bed. SR on the monitor. Resting quietly at this time w/o any distress noted. Encouraged to call for help as needed.
[2019-09-19 07:15] VITALS: BP 138/52
--- NOTE | 2019-09-19 10:36 | NUR ---
Received awake on bed. Due medications given as prescribed, able to swallow meds w/o difficulty. On room air. Vital signs stable. On carb controlled diet- tolerating well; no nausea, no vomiting and no abdominal pain noted. On blood sugar monitoring- taken and recorded accordingly; with sliding scale insulin ordered- given as prescribed. On telemetry- strips attached to chart; no complaints of chest pain, crushing sensation and heaviness. Continent of bowel and bladder- able to go to the toilet. With bilateral LE cellulitis- dressing C/D/I. With SL at L FA- intact; on IV abx. A/W OT for lymphadema wraps. Assisted in ADLs. To continue monitoring patient.
[2019-09-19] MEDS ORDERED: LASIX 40 MG TAB40 M2 PO (14:23)
[2019-09-19] MEDS ORDERED: METRONIDAZOLE500 M4 PO (14:23)
[2019-09-19] MEDS ORDERED: CEFDINIR300 MG PO (14:23)
[2019-09-19] MEDS ORDERED: HUMALOG100 UNIT/1 SUBQ (14:23)
--- NOTE | 2019-09-19 14:41 | NUR ---
PT ADMITTED RELATED TO CELLULITIS, SEPSIS. CM REVIEWED CHART AND SPOKE WITH CARE TEAM. CM CALLED AND SPOKE WITH PT AT BEDSIDE THIS DAY. PT APPEARED TO BE A&O X4. PT INDICATED SHE LIVES IN A HOUSE WITH HER SPOUSE WITH NO STEPS TO ENTER AND NO STEPS INSIDE. PT INDICATED THAT SHE HAS A FWW FOR HOME USE BUT HAD BEEN INDEPDENENT WITH GAIT AND ADLS BAKER. PT INDICATED NO HH OR OP THERAPY. PT HAD BEEN SEEN BY DR. MOSS IN THE PREVIOUSLY. PT INDICATED SHE PLANS TO RETURN HOME ONCE MEDICALLY STABLE. CM TO FOLLOW INDICATED WITH DC PLANNING.
[2019-09-19 15:21] VITALS: BP 119/40
[2019-09-19 20:32] VITALS: BP 149/65
--- NOTE | 2019-09-20 04:54 | NUR ---
ASSUMED PT CARE AROUND 1929. AXOX4. INDEPENDENT WITH ADLs. CALLS PROPERLY FOR HELP. AROUND 2199, VISITED PT AT BEDSIDE. BLE DRESSING WERE TAKEN DOWN AND OBSERVED BY . REDRESSING COMPLETED AND RECOMMENDED PT'S BLE HYPER-ELEVATED IN BED AT 9DEGREES. PT WAS ABLE TO TOLERATE THE POSITION THRUOUT THE SHIFT EXCEPT FOR BATHROOM BREAKS. ASSITED IN LOWERING BED DOWN SO PT CAN COMMODE EASILY. PT'S LVL OF CARE DOWNDGRADED TO MS PER TYRONE SAUCEDA ASSISTANT PROFESSOR OF ART FOR . NO S/S ACUTE DISTRESS NOTED OR REPORTED AT THIS TIME. WILL CONT TO MONITOR FOR ANY CHANGES IN CONDITION.
[2019-09-20 05:57] LABS: CALCIUM 8.6 mg/dL (8.5-10.1); CREATININE 1.4 mg/dL (0.6-1.0)
[2019-09-20 07:22] VITALS: BP 141/72
--- NOTE | 2019-09-20 12:18 | NUR ---
ORDERS RECEIVED FOR PT EVAL AND TREAT. Pt LIVES WITH IN HOME WITHOUT STAIRS. REPORTED THAT HAS BEEN HELPING HER SIT>STAND AT TIMES D/T DIFFICULTY WITH BENDING HER KNEES HOWEVER Pt DEMONSTRATED KNEE FLEXION WFL IN BED. INDEP WITH ADLs. HAS FWW AT HOME BUT USUALLY AMBULATORY WITHOUT GAIT AIDS. Pt HAS BILAT LE BANDAGING/WRAPS. Pt DECLINED NEED FOR PT INTERVENTIONS AT THIS TIME. PT DISCUSSED WITH Pt REGARDING INCREASING ACTIVITY LEVEL AND WALKING SHORT DISTANCES AT HOME SEVERAL TIMES A DAY. ALSO RECOMMENDED GETTING WEDGE FOR IMPROVED LE ELEVATION AT HOME Pt DOES HAVE LOWER BED ELEVATING FUNCTION BUT NOT HIGH ENOUGH FOR HEART LEVEL. Pt VERBALIZED UNDERSTANDING. RN NOTIFIED. ACUTE PT TO SIGN OFF.
--- NOTE | 2019-09-20 13:14 | NUR ---
CARE TEAM INDICATED THAT PT MAY BE MEDICALLY STABLE TO DC HOME THIS DAY. PT TO BE SEEN BY OT FOR LYMPHEDEMA WRAPS TODAY. CARE TEAM INDICATED THAT OUTPATIENT FOLLOW UP WITH WOUND CARE WOULD BE APPROPRIATE. IT IS ANTICPATED THAT PT WILL LIKELY HAVE NO NEEDS UPON DC. CM ABLE TO ASSIST SHOULD ANY NEEDS ARISE.
--- NOTE | 2019-09-20 13:23 | NUR ---
Assumed pt care at 7am.Pt in and out of bed with sba.Assessment completed.vss. Pt was frustrated and unhappy related to lymphydema to bilat.lower extremities.Insulin given ac meals. Dr Sullivan here,order noted.Piv not working well.Dr Angulo here okay iv antibiotic to be switch to po prior to dc home today.Therapist in room wrapping lower extremities.Pt will dc home later this afternoon.Will continue to monitor.
[2019-09-20] MEDS ORDERED: LEVAQUIN 500 M500 M3 PO (14:45)
== END 2019-09-20 15:09 | disposition home or self-care (01) | DRG 871 ==
LOC: ER 10:24 → EROBS 12:26 → 4W 12:26
PROVIDERS: Emergency Medicine; Specialist; ADMIT Hospitalist; ATTEND Hospitalist
DX: A41.9 Sepsis, unspecified organism (principal); N17.0 Acute kidney failure with tubular necrosis; E43 Unspecified severe protein-calorie malnutrition; L03.116 Cellulitis of left lower limb; L03.115 Cellulitis of right lower limb; E87.1 Hypo-osmolality and hyponatremia; L97.819 Non-pressure chronic ulcer of other part of right lower leg with unspecified severity; N18.2 Chronic kidney disease, stage 2 (mild); F32.9 Major depressive disorder, single episode, unspecified; D64.9 Anemia, unspecified; E11.65 Type 2 diabetes mellitus with hyperglycemia; E88.09 Other disorders of plasma-protein metabolism, not elsewhere classified; I87.2 Venous insufficiency (chronic) (peripheral); E11.42 Type 2 diabetes mellitus with diabetic polyneuropathy; E66.9 Obesity, unspecified; E87.5 Hyperkalemia; K59.00 Constipation, unspecified; B96.20 Unspecified Escherichia coli [E. coli] as the cause of diseases classified elsewhere; E11.22 Type 2 diabetes mellitus with diabetic chronic kidney disease; B96.5 Pseudomonas (aeruginosa) (mallei) (pseudomallei) as the cause of diseases classified elsewhere; B95.2 Enterococcus as the cause of diseases classified elsewhere; N30.90 Cystitis, unspecified without hematuria; Z87.442 Personal history of urinary calculi; Z88.8 Allergy status to other drugs, medicaments and biological substances; Z68.34 Body mass index [BMI] 34.0-34.9, adult; Z90.49 Acquired absence of other specified parts of digestive tract; Z83.3 Family history of diabetes mellitus
CPT/HCPCS: 10040; 10045

== ENCOUNTER → 2019-09-21 | Outpatient (CLI) | payer OTHER ==
[~2019-09-21] MED LIST changes: +CEFDINIR300 MG PO; +LASIX 40 MG TAB40 M2 PO; +LEVAQUIN 500 M500 M3 PO; +METRONIDAZOLE500 M4 PO
== END ==
LOC: HYPER 09:43
PROVIDERS: ATTEND Emergency Medicine
DX: E11.622 Type 2 diabetes mellitus with other skin ulcer (principal); I87.332 Chronic venous hypertension (idiopathic) with ulcer and inflammation of left lower extremity; I70.242 Atherosclerosis of native arteries of left leg with ulceration of calf; L97.222 Non-pressure chronic ulcer of left calf with fat layer exposed; I70.248 Atherosclerosis of native arteries of left leg with ulceration of other part of lower leg; L97.822 Non-pressure chronic ulcer of other part of left lower leg with fat layer exposed; L03.115 Cellulitis of right lower limb; I89.0 Lymphedema, not elsewhere classified; L30.9 Dermatitis, unspecified; L57.0 Actinic keratosis; E78.5 Hyperlipidemia, unspecified; F32.9 Major depressive disorder, single episode, unspecified; Z85.828 Personal history of other malignant neoplasm of skin; Z79.4 Long term (current) use of insulin; Z90.710 Acquired absence of both cervix and uterus

== ENCOUNTER → 2019-09-27 | Outpatient (CLI) | payer OTHER | LOC: HYPER 08:14 | PROVIDERS: ATTEND Emergency Medicine | DX: E11.622 Type 2 diabetes mellitus with other skin ulcer (principal); I87.322 Chronic venous hypertension (idiopathic) with inflammation of left lower extremity; I70.242 Atherosclerosis of native arteries of left leg with ulceration of calf; L97.222 Non-pressure chronic ulcer of left calf with fat layer exposed; I70.248 Atherosclerosis of native arteries of left leg with ulceration of other part of lower leg; L97.822 Non-pressure chronic ulcer of other part of left lower leg with fat layer exposed; I87.391 Chronic venous hypertension (idiopathic) with other complications of right lower extremity; E11.628 Type 2 diabetes mellitus with other skin complications; L03.115 Cellulitis of right lower limb; L30.9 Dermatitis, unspecified; I89.0 Lymphedema, not elsewhere classified; R60.0 Localized edema; E78.5 Hyperlipidemia, unspecified; L57.0 Actinic keratosis; F33.9 Major depressive disorder, recurrent, unspecified; Z79.4 Long term (current) use of insulin; Z90.49 Acquired absence of other specified parts of digestive tract; Z90.710 Acquired absence of both cervix and uterus; Z85.828 Personal history of other malignant neoplasm of skin ==

== ENCOUNTER → 2019-10-04 | Outpatient (CLI) | payer OTHER | LOC: HYPER 08:22 | PROVIDERS: ATTEND Emergency Medicine | DX: E11.622 Type 2 diabetes mellitus with other skin ulcer (principal); I87.333 Chronic venous hypertension (idiopathic) with ulcer and inflammation of bilateral lower extremity; I70.242 Atherosclerosis of native arteries of left leg with ulceration of calf; L97.222 Non-pressure chronic ulcer of left calf with fat layer exposed; L97.811 Non-pressure chronic ulcer of other part of right lower leg limited to breakdown of skin; L84 Corns and callosities; L30.9 Dermatitis, unspecified; L57.0 Actinic keratosis; I89.0 Lymphedema, not elsewhere classified; R60.0 Localized edema; E78.5 Hyperlipidemia, unspecified; F33.9 Major depressive disorder, recurrent, unspecified; Z90.49 Acquired absence of other specified parts of digestive tract; Z79.4 Long term (current) use of insulin; Z90.710 Acquired absence of both cervix and uterus ==

== ENCOUNTER → 2019-10-11 | Outpatient (CLI) | payer OTHER | LOC: HYPER 08:35 | PROVIDERS: ATTEND Emergency Medicine | DX: E11.622 Type 2 diabetes mellitus with other skin ulcer (principal); I87.333 Chronic venous hypertension (idiopathic) with ulcer and inflammation of bilateral lower extremity; L97.822 Non-pressure chronic ulcer of other part of left lower leg with fat layer exposed; L97.812 Non-pressure chronic ulcer of other part of right lower leg with fat layer exposed; I70.242 Atherosclerosis of native arteries of left leg with ulceration of calf; L97.222 Non-pressure chronic ulcer of left calf with fat layer exposed; L03.115 Cellulitis of right lower limb; L30.9 Dermatitis, unspecified; L57.0 Actinic keratosis; I89.0 Lymphedema, not elsewhere classified; R60.0 Localized edema; E78.5 Hyperlipidemia, unspecified; F33.9 Major depressive disorder, recurrent, unspecified; Z79.4 Long term (current) use of insulin; Z90.49 Acquired absence of other specified parts of digestive tract; Z90.710 Acquired absence of both cervix and uterus ==

== ENCOUNTER → 2019-10-18 | Outpatient (CLI) | payer OTHER | LOC: HYPER 08:26 | PROVIDERS: ATTEND Emergency Medicine | DX: E11.622 Type 2 diabetes mellitus with other skin ulcer (principal); I87.333 Chronic venous hypertension (idiopathic) with ulcer and inflammation of bilateral lower extremity; L97.822 Non-pressure chronic ulcer of other part of left lower leg with fat layer exposed; L97.812 Non-pressure chronic ulcer of other part of right lower leg with fat layer exposed; I70.242 Atherosclerosis of native arteries of left leg with ulceration of calf; L97.222 Non-pressure chronic ulcer of left calf with fat layer exposed; L03.115 Cellulitis of right lower limb; L84 Corns and callosities; L30.9 Dermatitis, unspecified; L57.0 Actinic keratosis; I89.0 Lymphedema, not elsewhere classified; R60.0 Localized edema; E78.5 Hyperlipidemia, unspecified; F33.9 Major depressive disorder, recurrent, unspecified; Z79.4 Long term (current) use of insulin; Z90.49 Acquired absence of other specified parts of digestive tract; Z90.710 Acquired absence of both cervix and uterus ==

== ENCOUNTER → 2019-10-25 | Outpatient (CLI) | payer OTHER | LOC: HYPER 08:37 | PROVIDERS: ATTEND Emergency Medicine | DX: E11.622 Type 2 diabetes mellitus with other skin ulcer (principal); I87.333 Chronic venous hypertension (idiopathic) with ulcer and inflammation of bilateral lower extremity; L97.822 Non-pressure chronic ulcer of other part of left lower leg with fat layer exposed; L97.811 Non-pressure chronic ulcer of other part of right lower leg limited to breakdown of skin; I70.242 Atherosclerosis of native arteries of left leg with ulceration of calf; L97.221 Non-pressure chronic ulcer of left calf limited to breakdown of skin; L84 Corns and callosities; L30.9 Dermatitis, unspecified; L57.0 Actinic keratosis; I89.0 Lymphedema, not elsewhere classified; R60.0 Localized edema; E78.5 Hyperlipidemia, unspecified; F33.9 Major depressive disorder, recurrent, unspecified; Z79.4 Long term (current) use of insulin; Z90.49 Acquired absence of other specified parts of digestive tract; Z90.710 Acquired absence of both cervix and uterus ==

== ENCOUNTER → 2019-11-14 | Outpatient (CLI) | payer OTHER | LOC: HYPER 13:09 | PROVIDERS: ATTEND Emergency Medicine Emergency Medical Services | DX: I87.333 Chronic venous hypertension (idiopathic) with ulcer and inflammation of bilateral lower extremity (principal); E11.622 Type 2 diabetes mellitus with other skin ulcer; I70.248 Atherosclerosis of native arteries of left leg with ulceration of other part of lower leg; L97.822 Non-pressure chronic ulcer of other part of left lower leg with fat layer exposed; L97.811 Non-pressure chronic ulcer of other part of right lower leg limited to breakdown of skin; I70.242 Atherosclerosis of native arteries of left leg with ulceration of calf; L97.221 Non-pressure chronic ulcer of left calf limited to breakdown of skin; I89.0 Lymphedema, not elsewhere classified; L30.9 Dermatitis, unspecified; L03.115 Cellulitis of right lower limb; L57.0 Actinic keratosis; E78.5 Hyperlipidemia, unspecified; F33.9 Major depressive disorder, recurrent, unspecified; Z79.4 Long term (current) use of insulin ==

== ENCOUNTER → 2019-11-22 | Outpatient (CLI) | payer OTHER | LOC: HYPER 08:10 | PROVIDERS: ATTEND Emergency Medicine | DX: E11.622 Type 2 diabetes mellitus with other skin ulcer (principal); I87.333 Chronic venous hypertension (idiopathic) with ulcer and inflammation of bilateral lower extremity; I70.74 Atherosclerosis of other type of bypass graft(s) of the left leg with ulceration; L97.222 Non-pressure chronic ulcer of left calf with fat layer exposed; L97.811 Non-pressure chronic ulcer of other part of right lower leg limited to breakdown of skin; L03.116 Cellulitis of left lower limb; L57.0 Actinic keratosis; L30.9 Dermatitis, unspecified; L84 Corns and callosities; I89.0 Lymphedema, not elsewhere classified; R60.0 Localized edema; E78.5 Hyperlipidemia, unspecified; F33.9 Major depressive disorder, recurrent, unspecified; Z90.49 Acquired absence of other specified parts of digestive tract; Z90.710 Acquired absence of both cervix and uterus; Z79.4 Long term (current) use of insulin ==

== ENCOUNTER → 2019-11-24 | Outpatient (CLI) | payer OTHER | LOC: HYPER 08:25 | PROVIDERS: ATTEND Emergency Medicine | DX: I87.333 Chronic venous hypertension (idiopathic) with ulcer and inflammation of bilateral lower extremity (principal); E11.622 Type 2 diabetes mellitus with other skin ulcer; I70.242 Atherosclerosis of native arteries of left leg with ulceration of calf; L97.221 Non-pressure chronic ulcer of left calf limited to breakdown of skin; I70.248 Atherosclerosis of native arteries of left leg with ulceration of other part of lower leg; L97.822 Non-pressure chronic ulcer of other part of left lower leg with fat layer exposed; L97.811 Non-pressure chronic ulcer of other part of right lower leg limited to breakdown of skin; E11.628 Type 2 diabetes mellitus with other skin complications; L03.115 Cellulitis of right lower limb; L03.116 Cellulitis of left lower limb; I89.0 Lymphedema, not elsewhere classified; R60.0 Localized edema; L30.9 Dermatitis, unspecified; L57.0 Actinic keratosis; E78.5 Hyperlipidemia, unspecified; F33.9 Major depressive disorder, recurrent, unspecified; Z85.828 Personal history of other malignant neoplasm of skin; Z79.4 Long term (current) use of insulin; Z90.49 Acquired absence of other specified parts of digestive tract; Z90.710 Acquired absence of both cervix and uterus ==

== ENCOUNTER → 2019-11-29 | Outpatient (CLI) | payer OTHER | LOC: HYPER 08:08 | PROVIDERS: ATTEND Emergency Medicine | DX: E11.622 Type 2 diabetes mellitus with other skin ulcer (principal); I87.333 Chronic venous hypertension (idiopathic) with ulcer and inflammation of bilateral lower extremity; I70.242 Atherosclerosis of native arteries of left leg with ulceration of calf; L97.222 Non-pressure chronic ulcer of left calf with fat layer exposed; L97.811 Non-pressure chronic ulcer of other part of right lower leg limited to breakdown of skin; L03.115 Cellulitis of right lower limb; L03.116 Cellulitis of left lower limb; L84 Corns and callosities; L30.9 Dermatitis, unspecified; L57.0 Actinic keratosis; I89.0 Lymphedema, not elsewhere classified; R60.0 Localized edema; E78.5 Hyperlipidemia, unspecified; F33.9 Major depressive disorder, recurrent, unspecified; Z79.4 Long term (current) use of insulin; Z90.49 Acquired absence of other specified parts of digestive tract; Z90.710 Acquired absence of both cervix and uterus ==

== ENCOUNTER → 2019-12-13 | Outpatient (CLI) | payer OTHER | LOC: HYPER 08:17 | PROVIDERS: ATTEND Emergency Medicine | DX: E11.622 Type 2 diabetes mellitus with other skin ulcer (principal); I87.333 Chronic venous hypertension (idiopathic) with ulcer and inflammation of bilateral lower extremity; I70.242 Atherosclerosis of native arteries of left leg with ulceration of calf; L97.222 Non-pressure chronic ulcer of left calf with fat layer exposed; L97.811 Non-pressure chronic ulcer of other part of right lower leg limited to breakdown of skin; L03.116 Cellulitis of left lower limb; L84 Corns and callosities; L30.9 Dermatitis, unspecified; L57.0 Actinic keratosis; I89.0 Lymphedema, not elsewhere classified; R60.0 Localized edema; E78.5 Hyperlipidemia, unspecified; F33.9 Major depressive disorder, recurrent, unspecified; Z90.49 Acquired absence of other specified parts of digestive tract; Z90.710 Acquired absence of both cervix and uterus; Z79.4 Long term (current) use of insulin ==

== ENCOUNTER → 2019-12-27 | Outpatient (CLI) | payer OTHER | LOC: HYPER 08:10 | PROVIDERS: ATTEND Emergency Medicine | DX: E11.622 Type 2 diabetes mellitus with other skin ulcer (principal); I87.333 Chronic venous hypertension (idiopathic) with ulcer and inflammation of bilateral lower extremity; I70.242 Atherosclerosis of native arteries of left leg with ulceration of calf; L97.222 Non-pressure chronic ulcer of left calf with fat layer exposed; L97.811 Non-pressure chronic ulcer of other part of right lower leg limited to breakdown of skin; L03.116 Cellulitis of left lower limb; L84 Corns and callosities; L30.9 Dermatitis, unspecified; L57.0 Actinic keratosis; I89.0 Lymphedema, not elsewhere classified; R60.0 Localized edema; E78.5 Hyperlipidemia, unspecified; F33.9 Major depressive disorder, recurrent, unspecified; Z90.49 Acquired absence of other specified parts of digestive tract; Z90.710 Acquired absence of both cervix and uterus; Z79.4 Long term (current) use of insulin ==

== ENCOUNTER → 2020-01-11 | Outpatient (CLI) | payer OTHER | LOC: HYPER 09:04 | PROVIDERS: ATTEND Emergency Medicine | DX: E11.622 Type 2 diabetes mellitus with other skin ulcer (principal); I87.333 Chronic venous hypertension (idiopathic) with ulcer and inflammation of bilateral lower extremity; I70.242 Atherosclerosis of native arteries of left leg with ulceration of calf; L97.222 Non-pressure chronic ulcer of left calf with fat layer exposed; L97.811 Non-pressure chronic ulcer of other part of right lower leg limited to breakdown of skin; L03.116 Cellulitis of left lower limb; L84 Corns and callosities; L30.9 Dermatitis, unspecified; L57.0 Actinic keratosis; I89.0 Lymphedema, not elsewhere classified; R60.0 Localized edema; E78.5 Hyperlipidemia, unspecified; F33.9 Major depressive disorder, recurrent, unspecified; Z79.4 Long term (current) use of insulin; Z90.49 Acquired absence of other specified parts of digestive tract; Z90.710 Acquired absence of both cervix and uterus ==

== ENCOUNTER → 2020-01-15 | Outpatient (CLI) | payer OTHER | LOC: HYPER 08:53 | PROVIDERS: ATTEND Emergency Medicine | DX: E11.622 Type 2 diabetes mellitus with other skin ulcer (principal); I70.242 Atherosclerosis of native arteries of left leg with ulceration of calf; I87.332 Chronic venous hypertension (idiopathic) with ulcer and inflammation of left lower extremity; L97.221 Non-pressure chronic ulcer of left calf limited to breakdown of skin; I87.391 Chronic venous hypertension (idiopathic) with other complications of right lower extremity; I89.0 Lymphedema, not elsewhere classified; R60.0 Localized edema; E11.628 Type 2 diabetes mellitus with other skin complications; L03.116 Cellulitis of left lower limb; L03.115 Cellulitis of right lower limb; L30.9 Dermatitis, unspecified; L57.0 Actinic keratosis; E78.5 Hyperlipidemia, unspecified; F33.9 Major depressive disorder, recurrent, unspecified; Z85.828 Personal history of other malignant neoplasm of skin; Z79.4 Long term (current) use of insulin; Z90.49 Acquired absence of other specified parts of digestive tract; Z90.710 Acquired absence of both cervix and uterus ==

== ENCOUNTER → 2020-01-29 | Outpatient (CLI) | payer OTHER | LOC: HYPER 12:08 | PROVIDERS: ATTEND Emergency Medicine | DX: E11.622 Type 2 diabetes mellitus with other skin ulcer (principal); I87.333 Chronic venous hypertension (idiopathic) with ulcer and inflammation of bilateral lower extremity; I70.242 Atherosclerosis of native arteries of left leg with ulceration of calf; L97.222 Non-pressure chronic ulcer of left calf with fat layer exposed; L97.811 Non-pressure chronic ulcer of other part of right lower leg limited to breakdown of skin; L03.116 Cellulitis of left lower limb; L30.9 Dermatitis, unspecified; L57.0 Actinic keratosis; I89.0 Lymphedema, not elsewhere classified; R60.0 Localized edema; E78.5 Hyperlipidemia, unspecified; E66.9 Obesity, unspecified; F33.9 Major depressive disorder, recurrent, unspecified; Z79.4 Long term (current) use of insulin; Z90.49 Acquired absence of other specified parts of digestive tract; Z90.710 Acquired absence of both cervix and uterus; Z68.32 Body mass index [BMI] 32.0-32.9, adult ==

== ENCOUNTER → 2020-02-07 | Outpatient (CLI) | payer OTHER | LOC: HYPER 08:50 | PROVIDERS: ATTEND Emergency Medicine | DX: E11.622 Type 2 diabetes mellitus with other skin ulcer (principal); I87.333 Chronic venous hypertension (idiopathic) with ulcer and inflammation of bilateral lower extremity; I70.242 Atherosclerosis of native arteries of left leg with ulceration of calf; L97.222 Non-pressure chronic ulcer of left calf with fat layer exposed; L97.811 Non-pressure chronic ulcer of other part of right lower leg limited to breakdown of skin; L03.116 Cellulitis of left lower limb; L30.9 Dermatitis, unspecified; L57.0 Actinic keratosis; I89.0 Lymphedema, not elsewhere classified; R60.0 Localized edema; E78.5 Hyperlipidemia, unspecified; F33.9 Major depressive disorder, recurrent, unspecified; Z90.49 Acquired absence of other specified parts of digestive tract; Z79.4 Long term (current) use of insulin; Z90.710 Acquired absence of both cervix and uterus ==

== ENCOUNTER → 2020-02-22 | Outpatient (CLI) | payer OTHER | LOC: HYPER 09:16 | PROVIDERS: ATTEND Emergency Medicine | DX: E11.622 Type 2 diabetes mellitus with other skin ulcer (principal); I87.333 Chronic venous hypertension (idiopathic) with ulcer and inflammation of bilateral lower extremity; I70.242 Atherosclerosis of native arteries of left leg with ulceration of calf; L97.222 Non-pressure chronic ulcer of left calf with fat layer exposed; L97.811 Non-pressure chronic ulcer of other part of right lower leg limited to breakdown of skin; L03.116 Cellulitis of left lower limb; L30.9 Dermatitis, unspecified; L57.0 Actinic keratosis; I89.0 Lymphedema, not elsewhere classified; R60.0 Localized edema; E78.5 Hyperlipidemia, unspecified; E66.9 Obesity, unspecified; F33.9 Major depressive disorder, recurrent, unspecified; Z90.49 Acquired absence of other specified parts of digestive tract; Z79.4 Long term (current) use of insulin; Z90.710 Acquired absence of both cervix and uterus; Z68.32 Body mass index [BMI] 32.0-32.9, adult ==